=== PATIENT | female | born 1960 | race Caucasian/White ===

== ENCOUNTER 2020-11-19 07:42 | Outpatient (CLI) | payer OTHER, SELFPAY ==
--- NOTE | ~2020-11-19 | US_ITS ---
EXAMINATION: US carotid duplex BI DATE: 11/19/2020 08:52 INDICATION: Carotid bruit. TECHNIQUE: Grayscale, color Doppler, and pulsed Doppler images of the cervical carotid arteries were obtained. The degree of vessel stenosis is placed in one of the following categories: normal, <50%, 5 0-69%, >=70% but less than near-occlusion, near-occlusion, or total occlusion. Note that percent sten osis relative to normal distal artery lumen diameter is indirectly measured from velocity measurement s as described by Mika, et al. Radiology 2003; 229:340-346. COMPARISON: None. FINDINGS: RIGHT: The right common carotid artery (CCA) peak systolic velocity (PSV) is 132 cm/s. The right internal ca rotid artery (ICA) PSV is 96 cm/s. The right ICA end-diastolic velocity (EDV) is 27 cm/s. The right I CA/CCA PSV ratio is 0.7. Grayscale and color Doppler images yield an estimate of <50% diameter reduct ion from plaque in the ICA. The external carotid artery (ECA) PSV is 140 cm/s. There is antegrade amado w in the right vertebral artery. LEFT: The left CCA PSV is 130 cm/s. The left ICA PSV is 108 cm/s. The left ICA EDV is 35 cm/s. The left ICA /CCA PSV ratio is 0.8. Grayscale and color Doppler images yield an estimate of <50% diameter reductio n from plaque in the ICA. The ECA PSV is 104 cm/s. There is antegrade flow in the left vertebral nicanor ry. IMPRESSION: 1. <50% stenosis in the right internal carotid artery. 2. <50% stenosis in the left internal carotid artery. Reviewed, dictated and finalized at location A. [place] [place]
== END 2020-11-19 07:43 | disposition home or self-care (01) ==
PROVIDERS: PCP Physician Assistant; Visit Provider Physician Assistant
DX: I65.23 Occlusion and stenosis of bilateral carotid arteries (principal); Z72.0 Tobacco use
CPT/HCPCS: 93880

== ENCOUNTER → 2021-10-09 02:31 | Outpatient (CLI) | payer OTHER, SELFPAY ==
[2021-10-09 16:36] LABS: SARS-CoV-2 RNA PCR Negative
== END ==
PROVIDERS: PCP Family Medicine; Visit Provider Family Medicine
DX: R05.9 Cough, unspecified (principal); Z20.822 Contact with and (suspected) exposure to COVID-19
CPT/HCPCS: C9803; U0003; U0005

== ENCOUNTER 2021-11-27 00:40 | Day surgery (SDC) | payer BC, SELFPAY ==
[2021-11-11 13:28] VITALS: BMI 19.6
--- NOTE | 2021-11-26 13:08 | PM.HPGS ---
History of Present Illness History of Present Illness Consent: Risks, benefits, and alternatives have been discussed and questions answered. Patient agrees to proceed with procedure. Chief complaint: neoplasm screening Narrative: Donna Salguero is a 60 year old female referred for colon cancer screening. she has a family history of colon cancer in her father. Review of Systems Review of Systems: All systems reviewed & are unremarkable except as noted in HPI and below PMFSH Past Medical History Medical History Hemochromatosis Primary hypertension Right carotid bruit Tobacco abuse Surgical History Surgical History Hx of cataract surgery Hx of cholecystectomy Family History Family History Father Carcinoma of colon Diabetes mellitus Hypertension Heart disease Cerebrovascular accident Mother Hypertension Sibling Hypertension Other Hemochromatosis Other Family history of gout Social History Social History Smoking packs per day: 1 Smoking cigarettes per day: 20.0 Smoking status: Current every day smoker Tobacco type: cigarettes Second hand tobacco smoke exposure: No Alcohol intake: never Drinks per week: 4 Alcohol use details: beer Substance use: never Substance use type: does not use Living arrangements: with family Spiritual care concerns: No Meds Home Medications and Allergies Home Medications Medication Instructions Recorded Confirmed Type amlodipine 10 mg tablet 10 mg PO DAILY #90 tablet 03/04/21 11/27/21 Rx lisinopril 20 mg tablet 20 mg PO DAILY #90 tablet 10/08/21 11/27/21 Rx Allergies Allergy/AdvReac Type Severity Reaction Status Date / Time No Known Allergies Allergy Verified 11/27/21 08:08 Exam Resp: Auscultation: clear to auscultation bilaterally Cardio: Rate: regular rate Rhythm: regular rhythm GI: GI Palp: Yes Soft to palpation and No Tenderness to palpation present (GI) Assessment and Plan Assessment and plan (1) Screening for colon cancer: Code(s): Z12.11 - Encounter for screening for malignant neoplasm of colon Status: Acute Assessment and Plan: Colonoscopy with possible biopsy or polypectomy or cautery or injection of substances.
--- NOTE | 2021-11-26 14:25 | WPDANESEPPF ---
Anes - Initial Pre Proc Eval Procedure: Operation Date: 11/27/21 09:00 Proposed Procedures p Screening Colonoscopy - Joel Morgan MD Date/Time: 11/26/21 14:25 Surgeon: Joel Morgan MD Pre Op Diagnosis: neoplasm screening Patient Data Age: 60 Gender: F Height: 1.7 m Weight: 57 kg Allergies Allergy/AdvReac Type Severity Reaction Status Date / Time No Known Allergies Allergy Verified 11/27/21 08:08 Home Medications Medication Instructions Recorded Confirmed Type amlodipine 10 mg tablet 10 mg PO DAILY #90 tablet 03/04/21 11/27/21 Rx lisinopril 20 mg tablet 20 mg PO DAILY #90 tablet 10/08/21 11/27/21 Rx Patient hx anesthesia problems: none Family hx anesthesia problems: none Results Review: All pre-operative results and documents have been reviewed as part of the pre-operative evaluation. [facility] Past Medical History Medical History Hemochromatosis Primary hypertension Right carotid bruit Tobacco abuse Surgical History Surgical History Hx of cataract surgery Hx of cholecystectomy Family History Family History Father Carcinoma of colon Diabetes mellitus Hypertension Heart disease Cerebrovascular accident Mother Hypertension Sibling Hypertension Other Hemochromatosis Other Family history of gout Social History Social History Smoking packs per day: 1 Smoking cigarettes per day: 20.0 Smoking status: Current every day smoker Tobacco type: cigarettes Second hand tobacco smoke exposure: No Alcohol intake: never Drinks per week: 4 Alcohol use details: beer Substance use: never Substance use type: does not use Living arrangements: with family Spiritual care concerns: No Anes - Eval Final PreProcedure Day of Procedure 11/26/21 14:25 Patient weight: thin Heart: regular rate and rhythm Lungs: clear to auscultation and normal air movement Airway: Mallampati scale class II Neurological: alert and oriented Last oral intake: >/= 8 hours ASA classification: III Emergent: no Anesthetic plan: proceed Anesthesia type and monitoring: general GIVS and standard monitoring Results Review: All pre-operative results and documents have been reviewed as part of the pre-operative evaluation. Informed Consent: The patient's anesthetic plan and its attendant risks and benefits were discussed with the patient/family/POA. Questions were solicited and answers provided to the satisfaction of the patient/family/POA.
[2021-11-27 08:10] VITALS: BP 129/79; PULSE 110; RESP 16; TEMP 36.5; O2SAT 99
[2021-11-27] MEDS: LACTATED RINGERS 1,000 ML 150 ML IV CONT (08:20)
[2021-11-27 09:08] VITALS: BP 103/68; PULSE 93; RESP 18; O2SAT 99
[2021-11-27 09:18] VITALS: BP 130/80; PULSE 97; RESP 20; O2SAT 100
[2021-11-27 09:28] VITALS: BP 143/91; PULSE 93; RESP 16; O2SAT 100
--- NOTE | 2021-11-27 09:38 | SUR.PHASEII ---
RN updated family member
== END 2021-11-27 09:36 | disposition home or self-care (01) ==
PROVIDERS: PCP Family Medicine; Visit Provider Internal Medicine Gastroenterology
PROC: 0DJD8ZZ Inspection of Lower Intestinal Tract, Via Natural or Artificial Opening Endoscopic (ICD-10-PCS; CPT 45378; principal; 2021-11-27 09:00)
DX: Z12.11 Encounter for screening for malignant neoplasm of colon (principal); Z80.0 Family history of malignant neoplasm of digestive organs; I10 Essential (primary) hypertension; E83.119 Hemochromatosis, unspecified; F17.210 Nicotine dependence, cigarettes, uncomplicated
CPT/HCPCS: 45378; J2704; J7120

== ENCOUNTER 2024-09-25 13:50 | Outpatient (CLI) | payer BC, SELFPAY ==
--- NOTE | ~2024-09-25 | US_ITS ---
EXAMINATION: US carotid duplex BI DATE: 09/25/2024 14:50 INDICATION: Unspecified symptoms and signs involving the circulatory system. Carotid artery disease. TECHNIQUE: Grayscale, color Doppler, and pulsed Doppler images of the cervical carotid arteries were obtained. The degree of vessel stenosis is placed in one of the following categories: normal, <50%, 5 0-69%, >=70% but less than near-occlusion, near-occlusion, or total occlusion. Note that percent sten osis relative to normal distal artery lumen diameter is indirectly measured from velocity measurement s as described by Mika, et al. Radiology 2003; 229:340-346. COMPARISON: Ultrasound 11/19/20 FINDINGS: In the right thyroid lobe, there is a 12 mm solid, hypoechoic, wider than tall nodule with lobulated margin and punctate echogenic foci (TI-RADS TR5). RIGHT: The right common carotid artery (CCA) peak systolic velocity (PSV) is 65 cm/s. The right internal car otid artery (ICA) PSV is 100 cm/s. The right ICA end-diastolic velocity (EDV) is 24 cm/s. The right I CA/CCA PSV ratio is 1.5. Grayscale and color Doppler images yield an estimate of <50% diameter reduct ion from plaque in the ICA. There is antegrade flow in the right vertebral artery. LEFT: The left CCA PSV is 92 cm/s. The left ICA PSV is 79 cm/s. The left ICA EDV is 27 cm/s. The left ICA/C CA PSV ratio is 0.9. Grayscale and color Doppler images yield an estimate of <50% diameter reduction from plaque in the ICA. There is antegrade flow in the left vertebral artery. IMPRESSION: 1. <50% stenosis in the right internal carotid artery. 2. <50% stenosis in the left internal carotid artery. 3. Right thyroid nodule. Ultrasound-guided fine needle aspiration is recommended. Reviewed, dictated and finalized at location A. [employer]TER IMPRESSION: 1. <50% stenosis in the right internal carotid artery. 2. <50% stenosis in the left internal carotid artery. 3. Right thyroid nodule. Ultrasound-guided fine needle aspiration is recommende d.
--- NOTE | ~2024-09-25 | CT_ITS ---
CT Scan of the Chest without Contrast: Clinical Indication: Lung cancer screening, nicotine dependence Technique: Contiguous sections were acquired throughout the chest without intravenous contrast. Dose reduction technique was used on this scan by utilizing automated exposure control and iterative recon struction technique. The dose-length product (DLP) was 64.81 mGy-cm. Findings: There is no evidence of any significant mediastinal, hilar or axillary lymphadenopathy. Coronary nicanor ry calcifications are present. There is no evidence of pleural or pericardial effusion. Focal cystic change at the left lung apex. Calcified right middle lobe granuloma present. There is mi ld emphysema. Images through the upper abdomen reveal no abnormalities. Impression: Lung RADS 2: Benign appearance. 12 month follow-up screening CT advised. Reviewed, dictated and finalized at location . D INSPECTOR Impression: Lung RADS 2: Benign appearance. 12 month follow-up screening CT advised.
== END 2024-09-25 13:51 | disposition home or self-care (01) ==
PROVIDERS: PCP Nurse Practitioner Family; Visit Provider Nurse Practitioner Family
DX: Z12.2 Encounter for screening for malignant neoplasm of respiratory organs (principal); R09.89 Other specified symptoms and signs involving the circulatory and respiratory systems; Z87.891 Personal history of nicotine dependence; I65.23 Occlusion and stenosis of bilateral carotid arteries
CPT/HCPCS: 71271; 93880

== ENCOUNTER 2024-11-05 12:15 | Outpatient (CLI) | payer BC, SELFPAY ==
--- NOTE | ~2024-11-05 | US_ITS ---
EXAMINATION: US FNA w image guidance DATE: 11/05/2024 13:33 INDICATION: Nontoxic single right thyroid nodule. TECHNIQUE: A time-out was performed to verify the patient's name, date of , and procedure to be performed . The procedure and its benefits and risks were discussed with the patient. Risks specifically discus sed included bleeding and infection. The patient understood the risks and agreed to proceed. The neck was prepped and draped in the usual sterile manner. 6 mL 1% lidocaine was used for local anesthesia . 6 passes were made with a 25G needle into the lesion. Appropriate needle location was documented with continuous sonographic guidance. A sterile bandage was applied. There were no immediate compli cations. FINDINGS: Grayscale ultrasound images demonstrate biopsy needles advanced into a 1.3 cm solid wider than tall h ypoechoic nodule with smooth margins and without internal echogenic foci TI-RADS 4. IMPRESSION: 1. Successful ultrasound-guided fine needle aspiration of a 1.3 cm Ti rads 4 right thyroid nodule. Reviewed, dictated and finalized at location A. EXAMINER IMPRESSION: 1. Successful ultrasound-guided fine needle aspiration of a 1.3 cm Ti rads 4 r ight thyroid nodule.
== END 2024-11-05 12:16 | disposition home or self-care (01) ==
PROVIDERS: PCP Nurse Practitioner Family; Visit Provider Nurse Practitioner Family
DX: E04.1 Nontoxic single thyroid nodule (principal)
CPT/HCPCS: 10005; 88172; 88173; 88305

== ENCOUNTER 2025-01-08 08:06 | Outpatient (CLI) | payer BC, SELFPAY ==
--- NOTE | 2025-01-08 08:12 | ECG_ITS ---
Test Date: 2025-01-08 08:16:23 Measurements Intervals Powell Rate: 103 P: 47 LA: 180 QRS: 42 QRSD: 75 T: 56 QT: 333 QTc: 436 Interpretive Statements SINUS TACHYCARDIA POSSIBLE LEFT ATRIAL ENLARGEMENT CANNOT R/O SEPTAL INFARCT, AGE INDETERMINATE BASELINE ARTIFACT- I, II, III, AVR, AVL, AVF ABNORMAL ECG No previous ECG available for comparison Electronically Signed On 01-08-2025 08:24:32 HOME CARE AIDE by Brennan Vargas D.O.
== END 2025-01-08 08:07 | disposition home or self-care (01) ==
LOC: ANHSURGERY 08:10
PROVIDERS: PCP Nurse Practitioner Family; Visit Provider Otolaryngology
DX: I10 Essential (primary) hypertension (principal); Z72.0 Tobacco use
CPT/HCPCS: 93005

== ENCOUNTER 2025-01-14 03:32 | Day surgery (SDC) | payer BC, SELFPAY ==
[2025-01-04 11:12] VITALS: BMI 21.2
--- NOTE | 2025-01-04 11:13 | PC.NURSE ---
Report to the Outpatient Waiting Room, entrance under the green pavilion located off [facility], at time _0600_ on date _[id number]_. Planned Procedure Time: _0730_.? Time changes happen often and if your time is changed the preop area will call you the afternoon before. - You and your visitor will be asked to self-screen and do not enter if you have any COVID symptoms. Please call surgeon if you need to reschedule. - A mask is optional within the hospital at this time. Patients may have clear liquids (water, carbonated beverages, clear teas, apple juice) until 3 hours prior to surgery with a maximum of 20 ounces. - No food from midnight until time of surgery and no smoking, or chewing tobacco (or any form of nicotine). No chewing gum, candy or mints. Take only the following medications with a SIP of water on the morning of surgery: __Symbicort DO NOT STOP ANY OF YOUR OTHER PRESCRIPTION MEDICATIONS PRIOR TO SURGERY EXCEPT THE FOLLOWING Hold all vitamins and supplements for 3 days per anesthesiologist. Medications to discontinue per physician Date to take last [id number]___ Please no make-up, nail kiswahili, hairspray, perfume, deodorant, or body powder the day of surgery.? No jewelry (including any body piercings) or valuables the day of surgery, leave them at home.? Please take a shower or bath the night before, or the morning of, surgery with an antibacterial soap.? Wear comfortable, loose fitting clothing.? - Jewelry must be removed prior to entering the operating room.? Rings and piercings that are not removed may be cut off. - The hospital will not accept responsibility for valuables.? - Please leave all valuables, including medications, at home the day of surgery. If you are going home after surgery, a licensed sprinkling truck driver must drive you home.? - NO public transportation without another adult if you receive anesthesia. - We recommend that an adult stay with you for 24 hours following discharge. - We also recommend that you do not drive, make important decision, drink alcoholic beverages, or take any drugs that were not prescribed by your health care provider for at least 24 hours after your discharge time. Follow any additional instructions given to you from your surgeon. Telephone instructions given to __Carol__and asked if any additional questions and then verbalized understanding. Patient advised to call surgeon office or pre surgery nurse liaison [phone] if any additional questions.
[2025-01-14] VITALS (9 sets, daily range): BP systolic 101–134; BP diastolic 59–73; PULSE 74–100; RESP 14–20; TEMP 36.4–36.7; O2SAT 94–100
[2025-01-14] MEDS: LACTATED RINGERS 1,000 ML 30 ML IV CONT ×2 (06:30→09:21)
--- NOTE | 2025-01-14 06:58 | WPDANESEPPF ---
Anes - Initial Pre Proc Eval Procedure: Operation Date: 01/14/25 07:30 Proposed Procedures p Right Thyroid Lobectomy with Laryngeal Nerve Monitor - Bentley Rubio MD Date/Time: 01/14/25 06:58 Surgeon: Bentley Rubio MD Pre Op Diagnosis: thyroid nodule Patient Data Age: 64 Gender: F Height: 1.7 m Weight: 61.4 kg Allergies Allergy/AdvReac Type Severity Reaction Status Date / Time No Known Allergies Allergy Verified 01/04/25 11:05 Home Medications ?Medication ?Instructions ?Recorded ?Confirmed ?Type albuterol sulfate 90 mcg/actuation 2 inh inhalation Q4H PRN shortness 09/11/24 01/04/25 Rx aerosol inhaler of breath or wheezing #8.5 grams nicotine (polacrilex) 4 mg gum 4 mg buccal Q2H #110 ea 09/11/24 01/04/25 Rx lisinopril 20 mg tablet 20 mg PO DAILY #90 tabs 10/02/24 01/04/25 Rx budesonide-formoterol HFA 160 2 puff inhalation Q12H #10.2 grams 12/12/24 01/04/25 Rx mcg-4.5 mcg/actuation aerosol inhaler (Symbicort) calcium 600 mg (as 1 tablet PO DAILY 01/04/25 01/04/25 History carbonate)-vitamin D3 5 mcg (200 unit) tablet (Calcium 600 + D(3)) amlodipine 10 mg tablet See Rx Instructions .Route 01/08/25 Rx .COMPLEX #90 tabs Patient hx anesthesia problems: none Family hx anesthesia problems: none Results Review: All pre-operative results and documents have been reviewed as part of the pre-operative evaluation. [facility] Past Medical History Medical History History of cataract Hemochromatosis Tobacco abuse Right carotid bruit Primary hypertension Surgical History Surgical History History of cholecystectomy Family History Family History Father Carcinoma of colon Diabetes mellitus Hypertension Heart disease Cerebrovascular accident Mother Hypertension Sibling Hypertension Other Hemochromatosis Other Family history of gout Social History Social History Social History: 09/11/24 Very confident with medical forms Smoking packs per day: 1 Smoking cigarettes per day: 20.0 Years smoked: 40 Smoking pack-years: 40.00 Smoking status: Current every day smoker Tobacco type: cigarettes Second hand tobacco smoke exposure: No Additional smoking assessment comments: Cut down to 7 cigarettes a day. Alcohol intake: current Drinks per week: 3 Alcohol use details: beer Substance use: never Substance use type: does not use Do You Feel Safe in your Home?: Yes Lack of Transportation: No Lack of Food: Never True Current Housing: I Have Housing Concerned About Future Housing: No Difficulty Paying Gas/Electric Bills: No Difficulty Paying for Meds: No Education: Bachelor's Degree Difficulty w/ Childcare or Family Care: No Living arrangements: with family Spiritual care concerns: No Anes - Eval Final PreProcedure Day of Procedure 01/14/25 06:58 Patient weight: normal Airway: Mallampati scale class III and special considerations Neurological: alert and oriented Last oral intake: >/= 8 hours ASA classification: II Emergent: no Anesthetic plan: proceed Anesthesia type and monitoring: general ETT and standard monitoring Results Review: All pre-operative results and documents have been reviewed as part of the pre-operative evaluation. HTN, COPD, carotid US reviewed w less than 50% stenosis bilaterally. Informed Consent: The patient's anesthetic plan and its attendant risks and benefits were discussed with the patient/family/POA. Questions were solicited and answers provided to the satisfaction of the patient/family/POA.
--- NOTE | 2025-01-14 07:12 | PM.IMHP ---
H&P: HPI History of Present Illness Date/Time: 01/14/25 07:12 [facility] Past Medical History Medical History History of cataract Hemochromatosis Tobacco abuse Right carotid bruit Primary hypertension Surgical History Surgical History History of cholecystectomy Family History Family History Father Carcinoma of colon Diabetes mellitus Hypertension Heart disease Cerebrovascular accident Mother Hypertension Sibling Hypertension Other Hemochromatosis Other Family history of gout Social History Social History Social History: 09/11/24 Very confident with medical forms Smoking packs per day: 1 Smoking cigarettes per day: 20.0 Years smoked: 40 Smoking pack-years: 40.00 Smoking status: Current every day smoker Tobacco type: cigarettes Second hand tobacco smoke exposure: No Additional smoking assessment comments: Cut down to 7 cigarettes a day. Alcohol intake: current Drinks per week: 3 Alcohol use details: beer Substance use: never Substance use type: does not use Do You Feel Safe in your Home?: Yes Lack of Transportation: No Lack of Food: Never True Current Housing: I Have Housing Concerned About Future Housing: No Difficulty Paying Gas/Electric Bills: No Difficulty Paying for Meds: No Education: Bachelor's Degree Difficulty w/ Childcare or Family Care: No Living arrangements: with family Spiritual care concerns: No Meds Home Medications and Allergies Home Medications ?Medication ?Instructions ?Recorded ?Confirmed ?Type albuterol sulfate 90 mcg/actuation 2 inh inhalation Q4H PRN shortness 09/11/24 01/04/25 Rx aerosol inhaler of breath or wheezing #8.5 grams nicotine (polacrilex) 4 mg gum 4 mg buccal Q2H #110 ea 09/11/24 01/04/25 Rx lisinopril 20 mg tablet 20 mg PO DAILY #90 tabs 10/02/24 01/04/25 Rx budesonide-formoterol HFA 160 2 puff inhalation Q12H #10.2 grams 12/12/24 01/04/25 Rx mcg-4.5 mcg/actuation aerosol inhaler (Symbicort) calcium 600 mg (as 1 tablet PO DAILY 01/04/25 01/04/25 History carbonate)-vitamin D3 5 mcg (200 unit) tablet (Calcium 600 + D(3)) amlodipine 10 mg tablet See Rx Instructions .Route 01/08/25 Rx .COMPLEX #90 tabs Allergies Allergy/AdvReac Type Severity Reaction Status Date / Time No Known Allergies Allergy Verified 01/04/25 11:05
--- NOTE | 2025-01-14 07:12 | WPDHPUPDATE1 ---
History and Physical Update Update Date/Time: 01/14/25 07:12 History and Physical has been reviewed, including an updated exam of the patient. There are NO changes in the patient's condition. Risks, benefits, and alternatives have been discussed and questions answered. Patient agrees to proceed with procedure.
[2025-01-14] MEDS: ACETAMINOPHEN 500 MG TABLET 1000 MG PO (07:20)
[2025-01-14] MEDS: ceFAZolin 2 GM/D5W 50 ML 2 GM/50 ML BAG IVPB (07:26)
[2025-01-14] MEDS: LIDO 1%/EPINEPHRINE 1:100,000 50 ML VIAL INFILTRATE (07:51)
--- NOTE | 2025-01-14 09:20 | W.PM.PROC2 ---
Procedure Note - Detailed Date of Procedure 01/14/25 Pre-op Diagnosis thyroid nodule Post-op Diagnosis Same Procedure Performed Right thyroid lobectomy Surgeon Bentley Rubio MD Anesthesia General Indications right thyroid nodule Findings RLN fully intact and stimulated at end of procedure, both parathyroid glands intact. Suture wray superior aspect of right thyroid lobe. No cervical adenopathy. Surgicel in wound. No drain. Description of Procedure On the date of the procedure the patient was met in the preoperative area. The risks and benefits of the procedure reviewed with the patient who elected to proceed.? The patient was brought back to the operating room by the anesthesia team and underwent general endotracheal anesthesia with NIM tube being appropriately placed.? Once an adequate plane of anesthesia was obtained a timeout was performed to assure the correct patient identity and procedure to be performed which they were. The patient's neck landmarks were marked and the proposed incision was injected with 1% lidocaine with 1:100,000 epinephrine.? The patient was then prepped and draped in the normal fashion for a thyroidectomy.? Neuro monitoring with a NIM endotracheal tube and nerve monitor were utilized throughout the surgery.? A shoulder roll was placed. A 4 cm incision was made two finger breadths above the sternal notch in a skin crease.?The incision was carried through subcutaneous tissue to the subcutaneous fat.? Electrocautery was used down to the level of the platysma which was incised. The strap muscles were identified and at the midline through the raphae.? The thyroid was identified and the strap muscles were elevated off of the right lobe. The right thyroid lobe was retracted medially and blunt dissection was carried out to free the thyroid from the surrounding strap muscles.? The superior pole of the thyroid was identified and the vessels were dissected and cauterized and ligated using harmonic scalpel.? The inferior pole was then identified and the vessels were similarly ligated with harmonic scalpel.? The thyroid was retracted medially and the superior parathyroid gland was identified and was dissected free from the thyroid gland.? The recurrent laryngeal nerve was then identified and dissected free of surrounding tissue. The nerve was confirmed with the prass probe as intact and the correct anatomic tissue. With the thyroid free from the recurrent nerve, it was then elevated and retracted medially and dissected free from the trachea. Bejarano?s ligament was taken down with bipolar and monopolar cautery.? The pyramidal lobe was also dissected free from surrounding tissue using harmonic. The right recurrent laryngeal nerve was found to be intact and confirmed with prass probe on the nerve monitor. The wound cavity was examined carefully. No bleeding was noted. Hemostasis obtained and confirmed with bipolar cautery. Surgicel was placed in the right tracheal groove. The strap muscles were re-approximated with a 3-0 Vicryl.? The platysma was closed with 3-0 Vicryl.? The deep dermal sutures were placed using 4-0 monocryl.? The skin was closed with a 4-0 Monocryl running subcuticular.? The incision was closed with dermabond. No drain was placed. The care the patient was transferred back to the anesthesia team and the patient was awoke in the operating room and was transferred back to the PACU in stable condition without complication. Bentley Rubio M.D. Estimated Blood Loss 10 Drains No Packing Yes (surgicel) Pathology Yes (right thyroid lobe, suture wray superior) Complications No immediate complications Condition Stable Disposition PACU
== END 2025-01-14 11:05 | disposition home or self-care (01) ==
PROVIDERS: PCP Nurse Practitioner Family; Visit Provider Otolaryngology
PROC: (CPT 60220; principal; 2025-01-14 07:30)
DX: D34 Benign neoplasm of thyroid gland (principal); I10 Essential (primary) hypertension; F17.210 Nicotine dependence, cigarettes, uncomplicated; Z79.51 Long term (current) use of inhaled steroids; Z80.0 Family history of malignant neoplasm of digestive organs; Z82.49 Family history of ischemic heart disease and other diseases of the circulatory system
CPT/HCPCS: 60220; 88307; 88342; A9270; J0330; J0690; J1100; J2003; J2004; J2250; J2405; J2704; J3010; J7120

== ENCOUNTER 2025-05-17 13:58 | Outpatient (CLI) | payer BC, SELFPAY ==
--- NOTE | ~2025-05-17 | MM_ITS ---
EXAMINATION: MM screening alan BI w ana HISTORY: Screening mammogram TECHNIQUE: Craniocaudal and mediolateral oblique 3-D tomosynthesis images were obtained and synthetic 2-D images were generated. CAD analysis was submitted and interpreted. COMPARISON: No prior mammogram is available for comparison at this institution. BREAST PARENCHYMAL COMPOSITION:Not Dense. The breasts are almost entirely fatty FINDINGS: There is asymmetry outer right subareolar region. No parenchymal abnormality left breast se en. No suspicious mammographic calcifications. IMPRESSION: Right subareolar asymmetry. Spot compression view, and possibly ultrasound, recommended for further e valuation. BI-RADS Category 0: Incomplete: Needs additional imaging evaluation. Reviewed, dictated and finalized at location . IMPRESSION: Right subareolar asymmetry. Spot compression view, and possibly ultrasound, rec ommended for further evaluation. BI-RADS Category 0: Incomplete: Needs additional imaging evaluation.
== END 2025-05-17 13:59 | disposition home or self-care (01) ==
LOC: ANHIMG 13:59
PROVIDERS: PCP Nurse Practitioner Family; Visit Provider Nurse Practitioner Family
DX: Z12.31 Encounter for screening mammogram for malignant neoplasm of breast (principal); R92.8 Other abnormal and inconclusive findings on diagnostic imaging of breast
CPT/HCPCS: 77063; 77067

== ENCOUNTER 2025-06-14 12:06 | Outpatient (CLI) | payer BC, SELFPAY ==
--- NOTE | ~2025-06-14 | MMUS_ITS ---
EXAMINATION: MM diagnostic alan RT w ana, US breast RT limited INDICATION: 64-year old female; BI-RADS 0, callback to evaluate right subareolar asymmetry. COMPARISON: 05/17/2025 TECHNIQUE: Digital breast tomosynthesis True lateral and spot compression CC and MLO views of the RIG HT breast were obtained with computer-aided detection to assist in interpretation of the study. Targe meli subareolar right breast was completed. MAMMOGRAM FINDINGS: There are scattered areas of fibroglandular density. The focal asymmetry of concern in the subareolar right breast effaces on spot compression views faith tible with superimposition of fibroglandular tissue. RIGHT BREAST ULTRASOUND FINDINGS: There is an area of localized heterogeneous fibroglandular tissue in the subareolar at about 9:00 loc ation that correlates to the mammographic finding. No suspicious solid or cystic mass is seen. IMPRESSION: Benign mammography and ultrasound findings. RECOMMENDATION: Annual screening mammography in 12 months. BI-RADS 2, BENIGN Reviewed, dictated and finalized at location B. IMPRESSION: Benign mammography and ultrasound findings. RECOMMENDATION: Annual screening mammography in 12 months. BI-RADS 2, BENIGN
== END 2025-06-14 12:07 | disposition home or self-care (01) ==
PROVIDERS: PCP Nurse Practitioner Family; Visit Provider Nurse Practitioner Family
DX: R92.8 Other abnormal and inconclusive findings on diagnostic imaging of breast (principal)
CPT/HCPCS: 76642; 77061; 77065; G0279